=== PATIENT | female | born 1930 | race Caucasian/White ===

== ENCOUNTER 2019-12-05 09:49 | Inpatient (IN) | payer OTHER, MEDICAID ==
[~2019-12-05] VITALS: Ht 157.5 cm; Wt 89.8 kg
[2019-12-05 09:49] VITALS: BP_SYST 123
[~2019-12-05 09:49] MED LIST: LEVO25TA2 PO
[2019-12-05] MEDS ORDERED: BISA10SU8 RC (10:25)
[2019-12-05] MEDS ORDERED: CEPH-568 GT (10:25)
[2019-12-05] MEDS ORDERED: LORA10TA64 GT (10:25)
[2019-12-05] MEDS ORDERED: BUDE0.5A NEB (10:25)
[2019-12-05] MEDS ORDERED: NA P135E3 RC (10:25)
[2019-12-05] MEDS ORDERED: LEVO75TA98 GT (10:25)
[2019-12-05] MEDS ORDERED: CAR30 GT (10:25)
[2019-12-05] MEDS ORDERED: SENN8.6T19 GT (10:25)
[2019-12-05] MEDS ORDERED: OMEP-268 GT (10:25)
[2019-12-05] MEDS ORDERED: ACET325T39 GT (10:25)
[2019-12-05] MEDS ORDERED: FOLI100T GT (10:25)
[2019-12-05] MEDS ORDERED: MOM GT (10:25)
[2019-12-05] MEDS ORDERED: HYDR-1189 GT (10:25)
[2019-12-05] MEDS ORDERED: TRAM50TA92 GT (10:25)
[2019-12-05] MEDS ORDERED: IPRA3AMP9 NEB (10:25)
[2019-12-05 10:59] LABS: BASOPHILS % (AUTO) 0.2 % (0.0-2.0); HEMATOCRIT 38.2 % (36-48); HEMOGLOBIN 12.6 g/dL (12.0-16.0); LYMPHOCYTES # (AUTO) 0.2 K/uL (1.0-5.5); MEAN CORPUSCULAR HEMOGLOBIN 33 pg (27-31); MEAN CORPUSCULAR HGB CONC 33 % (32-36); MEAN CORPUSCULAR VOLUME 101 fL (79.0-98.0); MONOCYTES # (AUTO) 1.1 K/uL (0.0-1.0); MONOCYTES % (AUTO) 5.2 % (1.7-9.3); NEUTROPHILS # (AUTO) 18.9 K/uL (1.8-7.7); NEUTROPHILS % (AUTO) 93.6 % (40.0-70.0); PLATELET COUNT (AUTO) 300 K/uL (130-430); RED CELL DISTRIBUTION WIDTH 14.1 % (9.0-15.0); WHITE BLOOD COUNT (AUTO) 20.2 K/uL (4.8-10.8)
[2019-12-05 11:10] LABS: ANION GAP 12 (5-15); CALCIUM 9.4 mg/dL (8.4-11.0); CHLORIDE 101 mmol/L (98-107); CREATININE 1.68 mg/dL (0.55-1.30); GLUCOSE 269 mg/dL (70-99); SODIUM SERUM 137 mmol/L (136-145); UREA NITROGEN, BLOOD 46 mg/dL (8-21)
[2019-12-05 11:15] LABS: INR 1.1 (0.8-1.2); PROTHROMBIN TIME 10.9 SECS (9.5-12.5)
[2019-12-05 11:17] LABS: ALANINE AMINOTRANSFERASE 68 U/L (12-78); ALBUMIN 2.8 g/dL (3.4-4.8); ASPARTATE AMINOTRANSFERASE 28 U/L (10-37); TOTAL BILIRUBIN 0.5 mg/dL (0.0-1.0)
[2019-12-05] MEDS ORDERED: PIPERACILLIN/TAZO 3.375 GM in NS 50 ML IV ONE (11:45)
[2019-12-05] MEDS ORDERED: PIPERACILLIN/TAZOBACTAM 3.375 GM/VIAL (ZOSYN) IV ONE (11:54)
[2019-12-05] MEDS ORDERED: IPRATROPIUM/ALBUTEROL SULFATE 3 ML AMPUL.NEB (DUONEB) INH ONE (12:30)
[2019-12-05] MEDS ORDERED: NACL 0.9% 2,000 ML IV ONE (14:15)
[2019-12-05 14:44] LABS: BILIRUBIN,URINE NEGATIVE (NEGATIVE); BLOOD, URINE NEGATIVE (NEGATIVE); CLARITY/URINE CLEAR (CLEAR); COLOR,URINE YELLOW (YELLOW); GLUCOSE,URINE NEGATIVE (NEGATIVE); KETONES,URINE NEGATIVE (NEGATIVE); LEUKOCYTE ESTERASE ,URINE NEGATIVE (NEGATIVE); NITRITE, URINE NEGATIVE (NEGATIVE); PH,URINE 6.5 (5.0-8.0); PROTEIN URINE NEGATIVE (NEGATIVE); UROBILINOGEN,URINE 0.2 (0.2-1.0)
[2019-12-05 15:08] VITALS: BP_SYST 157
[2019-12-05 16:29] VITALS: BP_SYST 123
[2019-12-05 16:30] VITALS: BP_SYST 123
[2019-12-05] MEDS: HYDROcodone/ACETAMIN 5-325 MG TAB (NORCO/ VICODIN) PO ONE ×2 (16:45→17:03)
[2019-12-05] MEDS ORDERED: LORazepam 2 MG/ML VIAL IVP ONE (16:45)
[2019-12-05] MEDS ORDERED: AZITHROMYCIN 500 MG in NS 250 ML IV ONE (19:30)
[2019-12-05 20:00] VITALS: BP_SYST 159
[2019-12-05] MEDS: SENNOSIDES 8.6 MG TABLET GT SCH (21:18)
[2019-12-05] MEDS: DILTIAZEM HCL 30 MG TABLET GT SCH (21:18)
[2019-12-05] MEDS: BUDESONIDE 0.5 MG/2 ML AMPUL.NEB INH SCH (21:34)
[2019-12-05] MEDS: NACL 0.9% 1,000 ML IV SCH (21:34)
[2019-12-05] MEDS ORDERED: HALOPERIDOL 1 MG TABLET (HALDOL) GT ONE (22:15)
[2019-12-05] MEDS: IPRATROPIUM/ALBUTEROL SULFATE 3 ML AMPUL.NEB (DUONEB) INH SCH (23:27)
[2019-12-05] MEDS: PIPERACILLIN/TAZO 3.375/DEX-IS 50 ML IV SCH (23:37)
[2019-12-06 00:30] VITALS: BP_SYST 131
[2019-12-06] MEDS: ACETAMINOPHEN 325 MG TABLET GT PRN ×4 (03:06→22:06)
[2019-12-06] MEDS: NACL 0.9% 1,000 ML IV SCH ×2 (05:09→15:55)
[2019-12-06] MEDS: PIPERACILLIN/TAZO 3.375/DEX-IS 50 ML IV SCH ×4 (05:14→23:42)
[2019-12-06] MEDS: LANSOPRAZOLE 30 MG CAPSULE.DR GT SCH (06:15)
[2019-12-06 06:24] LABS: BASOPHILS % (AUTO) 0.2 % (0.0-2.0); HEMATOCRIT 31.1 % (36-48); HEMOGLOBIN 10.3 g/dL (12.0-16.0); LYMPHOCYTES # (AUTO) 0.4 K/uL (1.0-5.5); LYMPHOCYTES % (AUTO) 2.4 % (20.5-51.5); MEAN CORPUSCULAR HEMOGLOBIN 33 pg (27-31); MEAN CORPUSCULAR HGB CONC 33 % (32-36); MEAN CORPUSCULAR VOLUME 100 fL (79.0-98.0); MONOCYTES # (AUTO) 1.8 K/uL (0.0-1.0); MONOCYTES % (AUTO) 9.9 % (1.7-9.3); NEUTROPHILS # (AUTO) 15.9 K/uL (1.8-7.7); NEUTROPHILS % (AUTO) 87.5 % (40.0-70.0); PLATELET COUNT (AUTO) 276 K/uL (130-430); RED BLOOD CELL COUNT(AUTO) 3.09 MIL/uL (4.2-6.2); RED CELL DISTRIBUTION WIDTH 14.4 % (9.0-15.0); WHITE BLOOD COUNT (AUTO) 18.2 K/uL (4.8-10.8)
[2019-12-06 06:58] LABS: ALBUMIN 2.3 g/dL (3.4-4.8); ANION GAP 10 (5-15); ASPARTATE AMINOTRANSFERASE 20 U/L (10-37); CALCIUM 8.9 mg/dL (8.4-11.0); CHLORIDE 106 mmol/L (98-107); CREATININE 1.44 mg/dL (0.55-1.30); GLUCOSE 131 mg/dL (70-99); POTASSIUM 3.9 mmol/L (3.5-5.1); SODIUM SERUM 141 mmol/L (136-145); THYROID STIMULATING HORMONE 0.45 uIu/mL (0.36-3.74); UREA NITROGEN, BLOOD 39 mg/dL (8-21)
[2019-12-06 07:12] LABS: TOTAL BILIRUBIN 0.8 mg/dL (0.0-1.0)
[2019-12-06] MEDS: BUDESONIDE 0.5 MG/2 ML AMPUL.NEB INH SCH ×2 (07:25→23:10)
[2019-12-06] MEDS: IPRATROPIUM/ALBUTEROL SULFATE 3 ML AMPUL.NEB (DUONEB) INH SCH ×4 (07:25→23:07)
[2019-12-06 07:27] LABS: ALANINE AMINOTRANSFERASE 48 U/L (12-78)
[2019-12-06 08:51] VITALS: BP_SYST 150
[2019-12-06] MEDS: SENNOSIDES 8.6 MG TABLET GT SCH ×2 (08:55→20:02)
[2019-12-06] MEDS: DILTIAZEM HCL 30 MG TABLET GT SCH ×2 (08:55→20:02)
[2019-12-06] MEDS: LEVOTHYROXINE SODIUM 0.075 MG TABLET GT SCH (09:00)
[2019-12-06] MEDS ORDERED: PANTOPRAZOLE GRANULES PACKET 40 MG GT SCH (09:00)
[2019-12-06] MEDS: MILK OF MAGNESIA 30 ML UDC GT SCH (09:10)
[2019-12-06 12:55] VITALS: BP_SYST 121
[2019-12-06] MEDS: LEVOFLOXACIN 250 MG/D5W 50 ML IV SCH (16:44)
[2019-12-06 16:55] VITALS: BP_SYST 126
[2019-12-06] MEDS: methylPREDNISolone SOD SUCC/PF 62.5 MG/ML VIAL IVP SCH (19:55)
[2019-12-06] MEDS: 0.45% NACL 1,000 ML IV SCH (19:55)
[2019-12-06 20:00] VITALS: BP_SYST 137
[2019-12-06 23:00] VITALS: BP_SYST 137
[2019-12-07 01:43] VITALS: BP_SYST 133
[2019-12-07] MEDS: ACETAMINOPHEN 325 MG TABLET GT PRN ×4 (04:15→22:06)
[2019-12-07] MEDS: PIPERACILLIN/TAZO 3.375/DEX-IS 50 ML IV SCH ×4 (05:00→23:52)
[2019-12-07] MEDS: methylPREDNISolone SOD SUCC/PF 62.5 MG/ML VIAL IVP SCH ×2 (06:00→19:06)
[2019-12-07] MEDS: LANSOPRAZOLE 30 MG CAPSULE.DR GT SCH (06:00)
[2019-12-07 06:17] LABS: ANION GAP 10 (5-15); CALCIUM 8.7 mg/dL (8.4-11.0); CHLORIDE 105 mmol/L (98-107); CREATININE 1.35 mg/dL (0.55-1.30); GLUCOSE 155 mg/dL (70-99); POTASSIUM 3.6 mmol/L (3.5-5.1); SODIUM SERUM 138 mmol/L (136-145); UREA NITROGEN, BLOOD 41 mg/dL (8-21)
[2019-12-07 07:04] LABS: HEMATOCRIT 29.5 % (36-48); HEMOGLOBIN 9.7 g/dL (12.0-16.0); LYMPHOCYTES # (AUTO) 0.2 K/uL (1.0-5.5); LYMPHOCYTES % (AUTO) 0.9 % (20.5-51.5); MEAN CORPUSCULAR HEMOGLOBIN 33 pg (27-31); MEAN CORPUSCULAR HGB CONC 33 % (32-36); MEAN CORPUSCULAR VOLUME 100 fL (79.0-98.0); MONOCYTES # (AUTO) 0.3 K/uL (0.0-1.0); MONOCYTES % (AUTO) 1.3 % (1.7-9.3); NEUTROPHILS # (AUTO) 18.7 K/uL (1.8-7.7); NEUTROPHILS % (AUTO) 97.8 % (40.0-70.0); PLATELET COUNT (AUTO) 271 K/uL (130-430); RED BLOOD CELL COUNT(AUTO) 2.95 MIL/uL (4.2-6.2); RED CELL DISTRIBUTION WIDTH 14.4 % (9.0-15.0); WHITE BLOOD COUNT (AUTO) 19.2 K/uL (4.8-10.8)
[2019-12-07] MEDS: IPRATROPIUM/ALBUTEROL SULFATE 3 ML AMPUL.NEB (DUONEB) INH SCH ×3 (07:12→19:21)
[2019-12-07 08:00] VITALS: BP_SYST 127
[2019-12-07] MEDS: MILK OF MAGNESIA 30 ML UDC GT SCH (09:00)
[2019-12-07] MEDS: SENNOSIDES 8.6 MG TABLET GT SCH ×2 (09:00→22:05)
[2019-12-07] MEDS: BUDESONIDE 0.5 MG/2 ML AMPUL.NEB INH SCH (09:09)
[2019-12-07] MEDS: DILTIAZEM HCL 30 MG TABLET GT SCH ×2 (10:12→22:06)
[2019-12-07] MEDS: LEVOTHYROXINE SODIUM 0.075 MG TABLET GT SCH (10:17)
[2019-12-07 13:04] VITALS: BP_SYST 107
[2019-12-07] MEDS: LEVOFLOXACIN 250 MG/D5W 50 ML IV SCH (15:41)
[2019-12-07 16:00] VITALS: BP_SYST 127
[2019-12-07] MEDS: 0.45% NACL 1,000 ML IV SCH (18:58)
[2019-12-07 20:00] VITALS: BP_SYST 150
[2019-12-08] MEDS: INSULIN LISPRO SLIDING SCALE 100 UNITS/ML VIAL (humaLOG) SUBCUT PRN ×2 (00:03→12:26)
[2019-12-08 00:17] VITALS: BP_SYST 139
[2019-12-08] MEDS: IPRATROPIUM/ALBUTEROL SULFATE 3 ML AMPUL.NEB (DUONEB) INH SCH ×4 (01:15→19:58)
[2019-12-08] MEDS: BUDESONIDE 0.5 MG/2 ML AMPUL.NEB INH SCH ×3 (01:16→20:00)
[2019-12-08] MEDS: ACETAMINOPHEN 325 MG TABLET GT PRN ×2 (02:08→08:13)
[2019-12-08] MEDS: PIPERACILLIN/TAZO 3.375/DEX-IS 50 ML IV SCH (05:58)
[2019-12-08] MEDS: LANSOPRAZOLE 30 MG CAPSULE.DR GT SCH (05:58)
[2019-12-08] MEDS: methylPREDNISolone SOD SUCC/PF 62.5 MG/ML VIAL IVP SCH ×2 (05:58→19:47)
[2019-12-08 06:48] LABS: ANION GAP 10 (5-15); CALCIUM 9.2 mg/dL (8.4-11.0); CHLORIDE 104 mmol/L (98-107); CREATININE 1.47 mg/dL (0.55-1.30); GLUCOSE 145 mg/dL (70-99); POTASSIUM 3.2 mmol/L (3.5-5.1); SODIUM SERUM 138 mmol/L (136-145); UREA NITROGEN, BLOOD 51 mg/dL (8-21)
[2019-12-08 07:04] LABS: BASOPHILS % (AUTO) 0.1 % (0.0-2.0); HEMATOCRIT 31.4 % (36-48); HEMOGLOBIN 10.2 g/dL (12.0-16.0); LYMPHOCYTES # (AUTO) 0.3 K/uL (1.0-5.5); LYMPHOCYTES % (AUTO) 1.6 % (20.5-51.5); MEAN CORPUSCULAR HEMOGLOBIN 33 pg (27-31); MEAN CORPUSCULAR HGB CONC 33 % (32-36); MEAN CORPUSCULAR VOLUME 100 fL (79.0-98.0); MONOCYTES # (AUTO) 0.5 K/uL (0.0-1.0); MONOCYTES % (AUTO) 2.8 % (1.7-9.3); NEUTROPHILS # (AUTO) 16.5 K/uL (1.8-7.7); NEUTROPHILS % (AUTO) 95.5 % (40.0-70.0); PLATELET COUNT (AUTO) 302 K/uL (130-430); RED BLOOD CELL COUNT(AUTO) 3.16 MIL/uL (4.2-6.2); RED CELL DISTRIBUTION WIDTH 14.1 % (9.0-15.0); WHITE BLOOD COUNT (AUTO) 17.3 K/uL (4.8-10.8)
[2019-12-08 08:01] VITALS: BP_SYST 162
[2019-12-08] MEDS: LEVOTHYROXINE SODIUM 0.075 MG TABLET GT SCH (08:13)
[2019-12-08] MEDS: SENNOSIDES 8.6 MG TABLET GT SCH ×2 (08:14→20:03)
[2019-12-08] MEDS: DILTIAZEM HCL 30 MG TABLET GT SCH ×2 (08:14→20:03)
[2019-12-08] MEDS: MILK OF MAGNESIA 30 ML UDC GT SCH (08:14)
[2019-12-08 12:15] VITALS: BP_SYST 136
[2019-12-08] MEDS ORDERED: POTASSIUM CHLORIDE 30 MEQ in NS 250 ML IV ONE (13:30)
[2019-12-08] MEDS ORDERED: FUROSEMIDE 40 MG/4 ML VIAL IVP ONE (14:30)
[2019-12-08] MEDS: metroNIDAZOLE 500 mg/NS 100 ML IV SCH ×2 (14:31→21:54)
[2019-12-08] MEDS ORDERED: GLUCOSE 15 GM GEL (in 37.5 GM TUBE) PO PRN (14:45)
[2019-12-08] MEDS ORDERED: D5W 1,000 ML IV PRN (14:45)
[2019-12-08] MEDS ORDERED: DEXTROSE 50%-WATER 50 ML DISP.SYRIN IVP PRN (14:45)
[2019-12-08] MEDS: CEFEPIME 0.5 GM in D5W 50 ML IV SCH (15:00)
[2019-12-08 16:25] VITALS: BP_SYST 133
[2019-12-08] MEDS: 0.45% NACL 1,000 ML IV SCH (17:09)
[2019-12-08] MEDS: HYDROcodone/ACETAMIN 5-325 MG TAB (NORCO/ VICODIN) GT PRN (17:14)
[2019-12-08] MEDS: LORazepam 1 MG TABLET GT PRN (19:57)
[2019-12-08 20:00] VITALS: BP_SYST 160
[2019-12-08] MEDS: QUEtiapine FUMARATE 25 MG TABLET GT SCH (20:03)
[2019-12-08 20:21] LABS: BILIRUBIN,URINE NEGATIVE (NEGATIVE); BLOOD, URINE 1+ (NEGATIVE); GLUCOSE,URINE NEGATIVE (NEGATIVE); KETONES,URINE NEGATIVE (NEGATIVE); LEUKOCYTE ESTERASE ,URINE TRACE (NEGATIVE); NITRITE, URINE NEGATIVE (NEGATIVE); PROTEIN URINE TRACE (NEGATIVE); UROBILINOGEN,URINE 0.2 (0.2-1.0)
[2019-12-08 20:30] LABS: CLARITY/URINE HAZY (CLEAR); COLOR,URINE STRAW (YELLOW)
[2019-12-08 20:33] LABS: BACTERIA,URINE FEW /HPF (None Seen); MUCUS,URINE None Seen /LPF (None Seen)
[2019-12-09 00:06] VITALS: BP_SYST 138
[2019-12-09] MEDS: IPRATROPIUM/ALBUTEROL SULFATE 3 ML AMPUL.NEB (DUONEB) INH SCH ×4 (00:26→19:35)
[2019-12-09] MEDS: INSULIN LISPRO SLIDING SCALE 100 UNITS/ML VIAL (humaLOG) SUBCUT PRN ×3 (00:32→17:55)
[2019-12-09] MEDS: CEFEPIME 0.5 GM in D5W 50 ML IV SCH ×2 (02:54→15:58)
[2019-12-09] MEDS: metroNIDAZOLE 500 mg/NS 100 ML IV SCH ×3 (05:03→21:23)
[2019-12-09] MEDS: 0.45% NACL 1,000 ML IV SCH (05:03)
[2019-12-09 05:47] LABS: BASOPHILS % (AUTO) 0.1 % (0.0-2.0); HEMOGLOBIN 11.2 g/dL (12.0-16.0); LYMPHOCYTES # (AUTO) 0.2 K/uL (1.0-5.5); LYMPHOCYTES % (AUTO) 2.1 % (20.5-51.5); MEAN CORPUSCULAR HEMOGLOBIN 33 pg (27-31); MEAN CORPUSCULAR HGB CONC 34 % (32-36); MEAN CORPUSCULAR VOLUME 98 fL (79.0-98.0); MONOCYTES # (AUTO) 0.5 K/uL (0.0-1.0); MONOCYTES % (AUTO) 4.2 % (1.7-9.3); NEUTROPHILS # (AUTO) 10.9 K/uL (1.8-7.7); PLATELET COUNT (AUTO) 311 K/uL (130-430); RED BLOOD CELL COUNT(AUTO) 3.37 MIL/uL (4.2-6.2); RED CELL DISTRIBUTION WIDTH 14.3 % (9.0-15.0); WHITE BLOOD COUNT (AUTO) 11.7 K/uL (4.8-10.8)
[2019-12-09 06:07] LABS: ALANINE AMINOTRANSFERASE 46 U/L (12-78); ALBUMIN 2.2 g/dL (3.4-4.8); ANION GAP 12 (5-15); ASPARTATE AMINOTRANSFERASE 20 U/L (10-37); CALCIUM 8.7 mg/dL (8.4-11.0); CHLORIDE 106 mmol/L (98-107); CREATININE 1.44 mg/dL (0.55-1.30); GLUCOSE 133 mg/dL (70-99); POTASSIUM 3.2 mmol/L (3.5-5.1); SODIUM SERUM 142 mmol/L (136-145); TOTAL BILIRUBIN 0.4 mg/dL (0.0-1.0); UREA NITROGEN, BLOOD 49 mg/dL (8-21)
[2019-12-09] MEDS: methylPREDNISolone SOD SUCC/PF 62.5 MG/ML VIAL IVP SCH ×2 (06:07→19:48)
[2019-12-09] MEDS: LANSOPRAZOLE 30 MG CAPSULE.DR GT SCH (06:07)
[2019-12-09 07:44] LABS: NEUTROPHILS % (AUTO) 93.6 % (40.0-70.0)
[2019-12-09 08:00] VITALS: BP_SYST 150
[2019-12-09] MEDS: BUDESONIDE 0.5 MG/2 ML AMPUL.NEB INH SCH ×2 (08:22→21:30)
[2019-12-09] MEDS: LEVOTHYROXINE SODIUM 0.075 MG TABLET GT SCH (08:54)
[2019-12-09] MEDS: SENNOSIDES 8.6 MG TABLET GT SCH ×2 (08:54→21:23)
[2019-12-09] MEDS: MILK OF MAGNESIA 30 ML UDC GT SCH (08:54)
[2019-12-09] MEDS: DILTIAZEM HCL 30 MG TABLET GT SCH ×2 (08:55→21:23)
[2019-12-09] MEDS ORDERED: FUROSEMIDE 40 MG/4 ML VIAL IVP ONE (09:00)
[2019-12-09] MEDS: POTASSIUM CHLORIDE 20 MEQ/PKT PACKET GT SCH ×2 (09:00→13:00)
[2019-12-09 12:25] VITALS: BP_SYST 142
[2019-12-09] MEDS ORDERED: POTASSIUM CHLORIDE 40 MEQ, LIDOCAINE JECT 2% PF 100 MG 50 MG in NS 250 ML IV ONE (12:45)
[2019-12-09] MEDS ORDERED: ONDANSETRON HCL 4 MG/2 ML VIAL IM PRN (12:45)
[2019-12-09] MEDS ORDERED: MORPHINE SULFATE 10 MG/ML VIAL IVP PRN (12:45)
[2019-12-09] MEDS: MORPHINE 2 MG/ML INJ. SYRINGE IVP PRN ×2 (13:00→19:57)
[2019-12-09] MEDS ORDERED: MORPHINE 2 MG/ML INJ. SYRINGE ONE (13:02)
[2019-12-09] MEDS: LORazepam 2 MG/ML VIAL IM PRN (13:35)
[2019-12-09] MEDS: KCL 20 mEq in 0.45% NS 1000 mL 1,000 ML IV SCH (13:38)
[2019-12-09 16:54] VITALS: BP_SYST 148
[2019-12-09 20:00] VITALS: BP_SYST 153
[2019-12-09] MEDS: QUEtiapine FUMARATE 25 MG TABLET GT SCH (21:23)
[2019-12-09 23:25] VITALS: BP_SYST 132
[2019-12-10] MEDS: INSULIN LISPRO SLIDING SCALE 100 UNITS/ML VIAL (humaLOG) SUBCUT PRN ×2 (00:19→05:59)
[2019-12-10] MEDS: KCL 20 mEq in 0.45% NS 1000 mL 1,000 ML IV SCH (01:14)
[2019-12-10] MEDS: IPRATROPIUM/ALBUTEROL SULFATE 3 ML AMPUL.NEB (DUONEB) INH SCH ×4 (01:38→19:40)
[2019-12-10] MEDS: CEFEPIME 0.5 GM in D5W 50 ML IV SCH ×2 (03:05→15:25)
[2019-12-10 05:48] LABS: ANION GAP 12 (5-15); CALCIUM 8.5 mg/dL (8.4-11.0); CHLORIDE 105 mmol/L (98-107); CREATININE 1.39 mg/dL (0.55-1.30); GLUCOSE 143 mg/dL (70-99); POTASSIUM 3.7 mmol/L (3.5-5.1); SODIUM SERUM 143 mmol/L (136-145); UREA NITROGEN, BLOOD 49 mg/dL (8-21)
[2019-12-10] MEDS: methylPREDNISolone SOD SUCC/PF 62.5 MG/ML VIAL IVP SCH ×2 (06:01→18:08)
[2019-12-10] MEDS: LANSOPRAZOLE 30 MG CAPSULE.DR GT SCH (06:02)
[2019-12-10] MEDS: metroNIDAZOLE 500 mg/NS 100 ML IV SCH ×3 (06:02→20:59)
[2019-12-10] MEDS: MORPHINE 2 MG/ML INJ. SYRINGE IVP PRN ×3 (06:07→20:47)
[2019-12-10 08:00] VITALS: BP_SYST 154
[2019-12-10] MEDS: BUDESONIDE 0.5 MG/2 ML AMPUL.NEB INH SCH ×2 (08:22→19:40)
[2019-12-10] MEDS: LEVOTHYROXINE SODIUM 0.075 MG TABLET GT SCH (09:08)
[2019-12-10] MEDS: SENNOSIDES 8.6 MG TABLET GT SCH ×2 (09:08→20:44)
[2019-12-10] MEDS: DILTIAZEM HCL 30 MG TABLET GT SCH ×2 (09:08→20:45)
[2019-12-10] MEDS: LORazepam 1 MG TABLET GT PRN (09:09)
[2019-12-10] MEDS: MILK OF MAGNESIA 30 ML UDC GT SCH (09:09)
[2019-12-10] MEDS: POTASSIUM CHLORIDE 10 MEQ in 0.45% NACL 1,000 ML IV SCH (09:28)
[2019-12-10 12:28] VITALS: BP_SYST 142
[2019-12-10 16:38] VITALS: BP_SYST 136
[2019-12-10 20:00] VITALS: BP_SYST 136
[2019-12-10] MEDS: QUEtiapine FUMARATE 25 MG TABLET GT SCH (20:45)
[2019-12-10 23:38] VITALS: BP_SYST 142
[2019-12-11] MEDS: IPRATROPIUM/ALBUTEROL SULFATE 3 ML AMPUL.NEB (DUONEB) INH SCH ×4 (01:09→19:32)
[2019-12-11] MEDS: MORPHINE 2 MG/ML INJ. SYRINGE IVP PRN ×3 (02:29→18:07)
[2019-12-11] MEDS: CEFEPIME 0.5 GM in D5W 50 ML IV SCH ×2 (02:53→14:35)
[2019-12-11] MEDS: LORazepam 1 MG TABLET GT PRN (06:02)
[2019-12-11] MEDS: metroNIDAZOLE 500 mg/NS 100 ML IV SCH ×3 (06:02→21:03)
[2019-12-11] MEDS: LANSOPRAZOLE 30 MG CAPSULE.DR GT SCH (06:02)
[2019-12-11] MEDS: methylPREDNISolone SOD SUCC/PF 62.5 MG/ML VIAL IVP SCH ×2 (06:03→18:06)
[2019-12-11 06:16] LABS: BASOPHILS % (AUTO) 0.1 % (0.0-2.0); HEMATOCRIT 34.3 % (36-48); HEMOGLOBIN 11.3 g/dL (12.0-16.0); LYMPHOCYTES # (AUTO) 0.5 K/uL (1.0-5.5); LYMPHOCYTES % (AUTO) 3.1 % (20.5-51.5); MEAN CORPUSCULAR HEMOGLOBIN 33 pg (27-31); MEAN CORPUSCULAR HGB CONC 33 % (32-36); MEAN CORPUSCULAR VOLUME 99 fL (79.0-98.0); MONOCYTES # (AUTO) 0.9 K/uL (0.0-1.0); MONOCYTES % (AUTO) 5.2 % (1.7-9.3); NEUTROPHILS # (AUTO) 15.2 K/uL (1.8-7.7); NEUTROPHILS % (AUTO) 91.6 % (40.0-70.0); PLATELET COUNT (AUTO) 366 K/uL (130-430); RED BLOOD CELL COUNT(AUTO) 3.47 MIL/uL (4.2-6.2); RED CELL DISTRIBUTION WIDTH 14.6 % (9.0-15.0); WHITE BLOOD COUNT (AUTO) 16.5 K/uL (4.8-10.8)
[2019-12-11 06:19] LABS: ANION GAP 6 (5-15); CALCIUM 8.4 mg/dL (8.4-11.0); CHLORIDE 105 mmol/L (98-107); CREATININE 1.36 mg/dL (0.55-1.30); GLUCOSE 166 mg/dL (70-99); POTASSIUM 3.7 mmol/L (3.5-5.1); SODIUM SERUM 137 mmol/L (136-145); UREA NITROGEN, BLOOD 52 mg/dL (8-21)
[2019-12-11 08:00] VITALS: BP_SYST 155
[2019-12-11] MEDS: MILK OF MAGNESIA 30 ML UDC GT SCH (08:35)
[2019-12-11] MEDS: SENNOSIDES 8.6 MG TABLET GT SCH ×2 (08:35→21:01)
[2019-12-11] MEDS: DILTIAZEM HCL 30 MG TABLET GT SCH ×2 (08:38→21:01)
[2019-12-11] MEDS: POTASSIUM CHLORIDE 10 MEQ in 0.45% NACL 1,000 ML IV SCH (08:39)
[2019-12-11] MEDS: LEVOTHYROXINE SODIUM 0.075 MG TABLET GT SCH (08:39)
[2019-12-11 10:10] VITALS: BP_SYST 155
[2019-12-11] MEDS: BUDESONIDE 0.5 MG/2 ML AMPUL.NEB INH SCH ×2 (10:42→19:32)
[2019-12-11] MEDS: FLUCONAZOLE 200 mg/ NS 100 ML IV SCH (11:44)
[2019-12-11 12:20] VITALS: BP_SYST 131
[2019-12-11] MEDS: HYDROcodone/ACETAMIN 5-325 MG TAB (NORCO/ VICODIN) GT PRN (13:47)
[2019-12-11 16:56] VITALS: BP_SYST 143
[2019-12-11] MEDS: METOCLOPRAMIDE HCL 10 MG/2 ML VIAL IVP SCH ×2 (18:06→23:28)
[2019-12-11 20:00] VITALS: BP_SYST 147
[2019-12-11] MEDS: QUEtiapine FUMARATE 25 MG TABLET GT SCH (21:01)
[2019-12-12 00:19] VITALS: BP_SYST 126
[2019-12-12] MEDS: IPRATROPIUM/ALBUTEROL SULFATE 3 ML AMPUL.NEB (DUONEB) INH SCH ×3 (00:38→13:21)
[2019-12-12] MEDS: MORPHINE 2 MG/ML INJ. SYRINGE IVP PRN (00:46)
[2019-12-12] MEDS: CEFEPIME 0.5 GM in D5W 50 ML IV SCH ×2 (02:58→15:00)
[2019-12-12] MEDS: metroNIDAZOLE 500 mg/NS 100 ML IV SCH ×2 (06:18→13:21)
[2019-12-12] MEDS: methylPREDNISolone SOD SUCC/PF 62.5 MG/ML VIAL IVP SCH ×2 (06:19→18:06)
[2019-12-12] MEDS: METOCLOPRAMIDE HCL 10 MG/2 ML VIAL IVP SCH ×3 (06:19→18:00)
[2019-12-12] MEDS: LANSOPRAZOLE 30 MG CAPSULE.DR GT SCH (06:20)
[2019-12-12 06:45] LABS: BASOPHILS % (AUTO) 0.1 % (0.0-2.0); HEMATOCRIT 37.3 % (36-48); LYMPHOCYTES # (AUTO) 0.3 K/uL (1.0-5.5); LYMPHOCYTES % (AUTO) 1.7 % (20.5-51.5); MEAN CORPUSCULAR HEMOGLOBIN 32 pg (27-31); MEAN CORPUSCULAR HGB CONC 32 % (32-36); MEAN CORPUSCULAR VOLUME 100 fL (79.0-98.0); MONOCYTES % (AUTO) 4.9 % (1.7-9.3); NEUTROPHILS # (AUTO) 19.2 K/uL (1.8-7.7); NEUTROPHILS % (AUTO) 93.3 % (40.0-70.0); PLATELET COUNT (AUTO) 418 K/uL (130-430); RED BLOOD CELL COUNT(AUTO) 3.74 MIL/uL (4.2-6.2); WHITE BLOOD COUNT (AUTO) 20.6 K/uL (4.8-10.8)
[2019-12-12 07:32] VITALS: BP_SYST 147
[2019-12-12] MEDS: BUDESONIDE 0.5 MG/2 ML AMPUL.NEB INH SCH (07:49)
[2019-12-12] MEDS: SENNOSIDES 8.6 MG TABLET GT SCH (07:59)
[2019-12-12] MEDS: LEVOTHYROXINE SODIUM 0.075 MG TABLET GT SCH (07:59)
[2019-12-12] MEDS: HYDROcodone/ACETAMIN 5-325 MG TAB (NORCO/ VICODIN) GT PRN (07:59)
[2019-12-12] MEDS: DILTIAZEM HCL 30 MG TABLET GT SCH (07:59)
[2019-12-12] MEDS: MILK OF MAGNESIA 30 ML UDC GT SCH ×2 (07:59→09:00)
[2019-12-12] MEDS: POTASSIUM CHLORIDE 10 MEQ in 0.45% NACL 1,000 ML IV SCH (08:03)
[2019-12-12 08:36] LABS: ANION GAP 8 (5-15); CALCIUM 8.6 mg/dL (8.4-11.0); CHLORIDE 108 mmol/L (98-107); CREATININE 1.22 mg/dL (0.55-1.30); GLUCOSE 148 mg/dL (70-99); POTASSIUM 4.3 mmol/L (3.5-5.1); SODIUM SERUM 143 mmol/L (136-145); UREA NITROGEN, BLOOD 53 mg/dL (8-21)
[2019-12-12] MEDS: LORazepam 2 MG/ML VIAL IM PRN ×2 (10:02→18:46)
[2019-12-12] MEDS: FLUCONAZOLE 200 mg/ NS 100 ML IV SCH (11:32)
[2019-12-12] MEDS: INSULIN LISPRO SLIDING SCALE 100 UNITS/ML VIAL (humaLOG) SUBCUT PRN (11:42)
[2019-12-12 12:13] VITALS: BP_SYST 136
[2019-12-12 14:00] VITALS: BP_SYST 126
[2019-12-12 16:26] VITALS: BP_SYST 126
[2019-12-12] MEDS ORDERED: VANCOMYCIN HCL Non-Formulary 125 MG CAPSULE PO SCH (17:30)
[2019-12-12] MEDS ORDERED: VANCOMYCIN HCL ORAL SOLUTION 250 MG/5 ML, 80 ML PO ONE (17:45)
[2019-12-12] MEDS ORDERED: VANCOMYCIN HCL Non-Formulary 125 MG CAPSULE GT SCH (21:00)
[2019-12-12] MEDS ORDERED: VANCOMYCIN HCL ORAL SOLUTION 250 MG/5 ML, 80 ML PO SCH (21:00)
== END 2019-12-12 19:10 | DRG 871 ==
LOC: SED 09:49 → STU 14:43
PROVIDERS: ADMIT Internal Medicine; ATTEND Internal Medicine
PROC: 05HY33Z Insertion of Infusion Device into Upper Vein, Percutaneous Approach (ICD-10-PCS; 2019-12-07)
PROC: B54MZZA Ultrasonography of Right Upper Extremity Veins, Guidance (ICD-10-PCS; 2019-12-07)
PROC: 0D20XUZ Change Feeding Device in Upper Intestinal Tract, External Approach (ICD-10-PCS; principal; 2019-12-11)
DX: A41.9 Sepsis, unspecified organism (principal); J69.0 Pneumonitis due to inhalation of food and vomit; J96.20 Acute and chronic respiratory failure, unspecified whether with hypoxia or hypercapnia; N17.0 Acute kidney failure with tubular necrosis; E43 Unspecified severe protein-calorie malnutrition; J44.1 Chronic obstructive pulmonary disease with (acute) exacerbation; K94.23 Gastrostomy malfunction; R47.01 Aphasia; G11.9 Hereditary ataxia, unspecified; A04.72 Enterocolitis due to Clostridium difficile, not specified as recurrent; E03.9 Hypothyroidism, unspecified; E11.22 Type 2 diabetes mellitus with diabetic chronic kidney disease; N18.9 Chronic kidney disease, unspecified; F70 Mild intellectual disabilities; R13.10 Dysphagia, unspecified; G89.4 Chronic pain syndrome; E66.01 Morbid (severe) obesity due to excess calories; Y83.3 Surgical operation with formation of external stoma as the cause of abnormal reaction of the patient, or of later complication, without mention of misadventure at the time of the procedure; Y92.238 Other place in hospital as the place of occurrence of the external cause; Z66 Do not resuscitate; E87.6 Hypokalemia; I48.91 Unspecified atrial fibrillation; F03.90 Unspecified dementia, unspecified severity, without behavioral disturbance, psychotic disturbance, mood disturbance, and anxiety; Z86.73 Personal history of transient ischemic attack (TIA), and cerebral infarction without residual deficits; Z87.440 Personal history of urinary (tract) infections; Z68.36 Body mass index [BMI] 36.0-36.9, adult; Z91.018 Allergy to other foods; Z79.899 Other long term (current) drug therapy
CPT/HCPCS: 36415; 36600; 71045; 76770; 80048; 80053; 81000-TC; 81003; 82803-TC; 82962; 83605; 83735-TC; 83880; 84443-TC; 84484; 85025; 85610-TC; 85730-TC; 87040-TC; 87081; 87086; 87230-TC; 93005; 94640; 94660; 94760; 96361; 96365; 99291; C1751; G0378; J0456; J0692; J1450; J1940; J1956; J2060; J2270; J2543; J2765; J2930; J3370; J3480; J3490; J7030; J7050; J7060; J7626